=== PATIENT | male | born 1955 | race Two or more races ===

== ENCOUNTER 2018-10-17 21:59 | Emergency (ER) | payer BC, OTHER ==
[2018-10-17] MEDS: DEXAMETHASONE 10 MG/ML 1 ML INJ IM (23:32)
[2018-10-17] MEDS: morphine 4 MG/ML VIAL IM (23:33)
== END 2018-10-18 00:07 | disposition home or self-care (01) ==
LOC: FTE 21:59
DX: M54.40 Lumbago with sciatica, unspecified side (principal)
CPT/HCPCS: 96372; 99284-25